=== PATIENT | male | born 1960 | race Caucasian/White ===

== ENCOUNTER 2017-10-24 02:48 | Observation (INO) | payer MEDICAID ==
[2017-10-24] VITALS (10 sets, daily range): BP systolic 109–148; BP diastolic 57–91; PULSE 56–73; RESP 16–20; TEMP 97.6–98.2; O2SAT 95–100
[~2017-10-24] VITALS: Ht 189.2 cm; Wt 80.0 kg
[~2017-10-24 02:48] MED LIST: ASPI81TA82 PO; EXCETAB; IBUP800T23 PO; PERC5TAB12 PO; TAB-TAB PO
[2017-10-24] MEDS ORDERED: ONDANSETRON HCL 4 MG/2 ML VIAL IVP ONE (05:00)
[2017-10-24] MEDS ORDERED: SODIUM CHLOR 0.9% 1000 ML INJ 1,000 ML IV SCH (05:00)
[2017-10-24] MEDS ORDERED: MORPHINE SULFATE 4 MG/ML INJ IV PUSH ONE (05:00)
--- NOTE | 2017-10-24 05:04 | PD ---
HPI Chief Complaint: Flank/Kidney Pain Time Seen by Provider: 04:57 Travel History International Travel<30 days: No Contact w/Intl Traveler<30days: No Traveled to known affect area: No History of Present Illness HPI 57-year-old male here for evaluation of left flank pain. The patient reports history of kidney stone last year and is followed by urologist Dr. Ortega. States that the pain is very similar. Pain started yesterday evening and is kept him from sleeping, has been constant, described as sharp/dull, intermittently worse at times, currently 5 out of 10, no modifying factors. He reports that he became nauseous and had a couple episodes of vomiting. Denies any history of abdominal surgeries. No hematuria or urinary symptoms. PFSH Past Medical History Anxiety: No Cancer: No Cardiovascular Problems: No Diabetes: No Diminished Hearing: No Endocrine: No Genitourinary: Yes (LEFT NEPHROSTOMY TUBE) Hepatitis: No Hiatal Hernia: No Hypertension: Yes Immune Disorder: No Kidney Stones: Yes Musculoskeletal: No Neurologic: No Psychiatric: No Respiratory: No Thyroid Disease: No Tetanus Vaccination: Unknown Influenza Vaccination: No Past Surgical History AICD: No Body Medical Devices: STENT L SIDE Cholecystectomy: Yes Genitourinary Surgery: Yes ( L SIDE STENT) Joint Replacement: No Pacemaker: No Tonsillectomy: Yes Other Surgery: Yes Social History Alcohol Use: Yes (OCCASIONAL) Tobacco Use: Yes (1 PPK) Substance Use: No Allergies-Medications (Allergen,Severity, Reaction): Coded Allergies: *MDRO Multi-Drug Resistant Organism (Verified Adverse Reaction, Unknown, 10/24/17) MRSA (wound) - 02/06/05 Reported Meds & Prescriptions Reported Meds & Active Scripts Active No Active Prescriptions or Reported Medications Review of Systems Except as stated in HPI: all other systems reviewed are Neg Physical Exam Narrative GENERAL: Well-developed, well-nourished, no apparent distress. SKIN: Focused skin assessment warm/dry. No rash. HEAD: Atraumatic. Normocephalic. EYES: Pupils equal and round. No scleral icterus. No injection or drainage. ENT: Mucous membranes pink and moist. NECK: Trachea midline. No JVD. CARDIOVASCULAR: Regular rate and rhythm. No murmur appreciated. RESPIRATORY: No accessory muscle use. Clear to auscultation. Breath sounds equal bilaterally. GASTROINTESTINAL: Abdomen soft, nondistended. Mild left mid and left lower quadrant tenderness without peritoneal signs. Rest of abdomen is soft and nontender. MUSCULOSKELETAL: No obvious deformities. No clubbing. No cyanosis. No edema. Mild left CVA tenderness. No right CVA tenderness. No midline vertebral step- off or tenderness. NEUROLOGICAL: Awake and alert. No obvious cranial nerve deficits. Motor grossly within normal limits. Normal speech. PSYCHIATRIC: Appropriate mood and affect; insight and judgment normal. Data Data Last Documented VS Vital Signs Date Time Temp Pulse Resp B/P (MAP) Pulse Ox O2 Delivery O2 Flow Rate FiO2 10/24/17 06:05 68 16 128/75 (92) 99 Room Air 10/24/17 02:51 97.6 Orders Orders Complete Blood Count With Diff (10/24/17 05:00) Comprehensive Metabolic Panel (10/24/17 05:00) Urinalysis - C+S If Indicated (10/24/17 05:00) Ct Abd/Pel W/O Iv Contrast (10/24/17 05:00) Iv Access Insert/Monitor (10/24/17 05:00) Ecg Monitoring (10/24/17 05:00) Oximetry (10/24/17 05:00) Morphine Inj (Morphine Inj) (10/24/17 05:00) Ondansetron Inj (Zofran Inj) (10/24/17 05:00) Sodium Chlor 0.9% 1000 Ml Inj (Ns 1000 M (10/24/17 05:00) Sodium Chloride 0.9% Flush (Ns Flush) (10/24/17 05:00) Urine Culture (10/24/17 06:00) Ceftriaxone Inj (Rocephin Inj) (10/24/17 06:30) Labs Laboratory Tests Test 10/24/17 05:16 10/24/17 06:00 10/24/17 06:50 White Blood Count 15.9 TH/MM3 Red Blood Count 4.95 MIL/MM3 Hemoglobin 15.3 GM/DL Hematocrit 45.1 % Mean Corpuscular Volume 91.2 FL Mean Corpuscular Hemoglobin 31.0 PG Mean Corpuscular Hemoglobin Concent 34.0 % Red Cell Distribution Width 14.2 % Platelet Count 231 TH/MM3 Mean Platelet Volume 8.2 FL Neutrophils (%) (Auto) 88.4 % Lymphocytes (%) (Auto) 4.3 % Monocytes (%) (Auto) 6.8 % Eosinophils (%) (Auto) 0.3 % Basophils (%) (Auto) 0.2 % Neutrophils # (Auto) 14.0 TH/MM3 Lymphocytes # (Auto) 0.7 TH/MM3 Monocytes # (Auto) 1.1 TH/MM3 Eosinophils # (Auto) 0.0 TH/MM3 Basophils # (Auto) 0.0 TH/MM3 CBC Comment DIFF FINAL Differential Comment Urine Color YELLOW Urine Turbidity CLOUDY Urine pH 6.5 Urine Specific [place] 1.019 Urine Protein 100 mg/dL Urine Glucose (UA) NEG mg/dL Urine Ketones NEG mg/dL Urine Occult Blood MOD Urine Nitrite NEG Urine Bilirubin NEG Urine Urobilinogen 2.0 MG/DL Urine Leukocyte Esterase LARGE Urine RBC /hpf Urine WBC /hpf Urine WBC Clumps MANY Microscopic Urinalysis Comment CULTURE INDICATED Blood Urea Nitrogen 16 MG/DL Creatinine 1.31 MG/DL Random Glucose 123 MG/DL Total Protein 7.8 GM/DL Albumin 3.0 GM/DL Calcium Level 8.2 MG/DL Alkaline Phosphatase 72 U/L Aspartate Amino Transf (AST/SGOT) 12 U/L Alanine Aminotransferase (ALT/SGPT) 22 U/L Total Bilirubin 0.5 MG/DL Sodium Level 141 MEQ/L Potassium Level 4.4 MEQ/L Chloride Level 107 MEQ/L Carbon Dioxide Level 29.9 MEQ/L Anion Gap 4 MEQ/L Estimat Glomerular Filtration Rate 56 ML/MIN MDM Medical Decision Making Medical Screen Exam Complete: Yes Emergency Medical Condition: Yes Differential Diagnosis Nephrolithiasis, ureterolithiasis, UTI, pyelonephritis, colitis, diverticulitis, Narrative Course Vital signs reviewed. CBC is remarkable for WBC 15.9 with 88.4% neutrophils. CMP is remarkable for creatinine 1.31, GFR 56, otherwise. UA shows cloudy urine, moderate occult blood, large leukocyte esterase, innumerable rbc's, innumerable wbc's, many wbc clumps. CT abdomen pelvis: CONCLUSION: 1. Moderate left hydronephrosis with surrounding inflammatory change. There is dilatation of the left ureter down to the site of a previously noted 12 mm calculus which is now smaller and changed in configuration. This may be status post lithotripsy. 2. 2 nonobstructing left renal calculus. Patient has had history of urosepsis in our system. He was given a dose of IV Rocephin. Currently his vital signs are within normal limits. Patient was given IV morphine with some improvement in pain. He complains of occasional waves of worsening pain. Case discussed with on-call urologist Dr. Weeks who agrees with admitting the patient to the medical service for urology consultation. Chemistry has been recontacted twice for hemolyzed specimen. Diagnosis Primary Impression: Ureterolithiasis Additional Impression: Pyelonephritis Admitting Information Admitting Physician Requests: Admit Scripts No Active Prescriptions or Reported Meds Pepe Best MD Oct 24, 2017 05:04
[2017-10-24 05:36] LABS: BASOPHIL % 0.2 % (0.0-2.0); EOSINOPHIL % 0.3 % (0.0-4.0); HEMATOCRIT 45.1 % (39.0-51.0); HEMO FLAGS DIFF FINAL; LYMPH % 4.3 % (9.0-44.0); LYMPHOCYTE # 0.7 TH/MM3 (1.0-4.8); MEAN CELL VOLUME 91.2 FL (80.0-100.0); MONO % 6.8 % (0.0-8.0); NEUT % 88.4 % (16.0-70.0); PLATELET COUNT 231 TH/MM3 (150-450); RED BLOOD COUNT 4.95 MIL/MM3 (4.50-5.90); RED CELL DISTRIBUTION WIDTH 14.2 % (11.6-17.2); WHITE BLOOD COUNT 15.9 TH/MM3 (4.0-11.0)
--- NOTE | 2017-10-24 06:03 | RADRPT ---
EXAM DATE/TIME: 10/24/2017 05:43 [facility] COMPARISON: CT ABDOMEN & PELVIS W/O CONTRAST, April 30, 2016, 6:27. INDICATIONS : Left flank pain. ORAL CONTRAST: No oral contrast ingested. RADIATION DOSE: 9.20 CTDIvol (mGy) MEDICAL HISTORY : Renal calculi. SURGICAL HISTORY : nephrostomy ENCOUNTER: Initial ACUITY: 1 day PAIN SCALE: 5/10 LOCATION: Left flank TECHNIQUE: Volumetric scanning of the abdomen and pelvis was performed. Using automated exposure control and ad justment of the mA and/or kV according to patient size, radiation dose was kept as low as reasonably achievable to obtain optimal diagnostic quality images. DICOM format image data is available electro nically for review and comparison. FINDINGS: LOWER LUNGS: The visualized lower lungs are clear. LIVER: Homogeneous density without lesion. There is no dilation of the biliary tree. No calcified gallston es. SPLEEN: Normal size without lesion. PANCREAS: Within normal limits. KIDNEYS: The right kidney remains normal in size shape and attenuation value with no renal calculi. The left k idney is more prominent and contains 2 nonobstructing. A calculus in the lower pole is new and measur es approximately 5 mm. There is moderate left hydronephrosis with surrounding inflammatory change. Th ere is dilatation of the left ureter down to the proximal left pelvis. On the prior study, there was a 1.2 cm rounded stone. There is now a more linear collection of calcification best seen on axial peg ge #76. This measures approximately 10 x 3 mm in size. The ureter below this point is within normal l imits. ADRENAL GLANDS: Within normal limits. VASCULAR: There is no aortic aneurysm. BOWEL/MESENTERY: The stomach, small bowel, and colon demonstrate no acute abnormality. There is no free intraperitone al air or fluid. ABDOMINAL WALL: Within normal limits. RETROPERITONEUM: There is no lymphadenopathy. BLADDER: No wall thickening or mass. REPRODUCTIVE: Within normal limits. INGUINAL: There is no lymphadenopathy or hernia. MUSCULOSKELETAL: Within normal limits for patient age. CONCLUSION: 1. Moderate left hydronephrosis with surrounding inflammatory change. There is dilatation of the left ureter down to the site of a previously noted 12 mm calculus which is now smaller and changed in con figuration. This may be status post lithotripsy. 2. 2 nonobstructing left renal calculus. Aiblio Parker MD on October 24, 2017 at 5:55 Board Certified Radiologist. This report was verified electronically.
[2017-10-24 06:26] LABS: BLOOD, URINE MOD (NEG); COMMENT (UR) CULTURE INDICATED; CULTURE IF INDICATED CULTURE INDICATED; GLUCOSE,URINE NEG (NEG); KETONE, URINE NEG (NEG); NITRITE,URINE NEG (NEG); PH, URINE 6.5 (5.0-8.5); URINE COLOR YELLOW (YELLW/STRAW)
[2017-10-24] MEDS ORDERED: cefTRIAXone INJ 1,000 MG in SODIUM CHLORIDE 0.9% INJ 100 ML IV ONE (06:30)
[2017-10-24 06:48] LABS: ALKALINE PHOSPHATASE 72 U/L (45-117); TOTAL BILIRUBIN ADULT 0.5 MG/DL (0.2-1.0)
[2017-10-24 07:26] LABS: ALT (GPT) 22 U/L (12-78); ANION GAP 4 MEQ/L (5-15); AST (GOT) 12 U/L (15-37); BICARBONATE 29.9 MEQ/L (21.0-32.0); BLOOD UREA NITROGEN 16 MG/DL (7-18); CHLORIDE 107 MEQ/L (98-107); GLOMERULAR FILTRATION RATE 56 ML/MIN (>89); POTASSIUM 4.4 MEQ/L (3.5-5.1); SODIUM (NA) 141 MEQ/L (136-145)
[2017-10-24] MEDS ORDERED: ONDANSETRON HCL 4 MG/2 ML VIAL IV PUSH PRN (08:15)
[2017-10-24] MEDS: SODIUM CHLOR 0.9% 1000 ML INJ 1,000 ML IV SCH ×2 (09:34→18:15)
[2017-10-24] MEDS ORDERED: ONDANSETRON HCL 4 MG/2 ML VIAL IV PUSH ONE (12:00)
[2017-10-24] MEDS ORDERED: LIDOCAINE HCL 1% PF 5 ML SYRINGE OTHER ONE (12:00)
[2017-10-24] MEDS ORDERED: PROPOFOL 200 MG/20 ML AMP IV ONE (12:00)
[2017-10-24] MEDS ORDERED: ePHEDrine/NS 25 MG/5 ML SYR IV ONE (12:00)
[2017-10-24] MEDS ORDERED: LACTATED RINGER'S 1000 ML INJ 1,000 ML IV ONE (12:00)
--- NOTE | 2017-10-24 12:51 | HHI.HP ---
[facility] Zamzam Rodriguez MD Admission Diagnosis obstructive uropathy, urinary tract infection Diagnoses: (1) left sided hydronephrosis Diagnosis: Principal Chief Complaint: abdominal pain Travel History International Travel<30 Days: No Contact w/Intl Traveler <30 Da: No Traveled to Known Affected Are: No History of Present Illness patient is a 57 y/o male with history of nephrolithiasis- s/p lithotripsy and stent placement who presented to ER with abdominal pain. he says that the pain started last night. pain was severe in intensity. pain was localized to LLQ with no radiation. pain was associated with nausea and vomiting. he denies any fever, dysuria or gross hematuria. pain was better at the time of my evaluation. Review of Systems Constitutional: DENIES: Fever, Weight loss, Chills, Night Sweats Eyes: DENIES: Blurred vision, Diplopia, Vision loss, Double Vision Ears, nose, mouth, throat: DENIES: Tinnitus, Vertigo, Throat pain, Epistaxis Respiratory: DENIES: Apneas, Cough, Snoring, Wheezing, Hemoptysis, Sputum production, Shortness of breath Cardiovascular: DENIES: Chest pain, Palpitations, Syncope, Dyspnea on Exertion , PND, Lower Extremity Edema, Orthopnea, Claudication Gastrointestinal: COMPLAINS OF: Abdominal pain, Nausea, Vomiting, DENIES: Black stools, Bloody stools, Constipation, Diarrhea, Difficulty Swallowing, Anorexia Genitourinary: DENIES: Urinary frequency, Urgency, Hematuria, Dysuria Musculoskeletal: DENIES: Joint pain, Muscle aches, Stiffness, Joint Swelling Integumentary: DENIES: Rash Neurologic: DENIES: Abnormal gait, Headache, Localized weakness, Paresthesias, Seizures, Speech Problems, Tremor, Poor Balance Psychiatric: DENIES: Anxiety, Confusion, Mood changes, Depression, Hallucinations, Agitation, Suicidal Ideation, Homicidal Ideation, Delusions Past Family Social History Past Medical History nephrolithiasis Past Surgical History lithotripsy/ stent placement. Reported Medications none reported. Allergies: Coded Allergies: *MDRO Multi-Drug Resistant Organism (Verified Adverse Reaction, Unknown, 10/24/17) MRSA (wound) - 02/06/05 Active Ordered Medications Current Medications Morphine Sulfate (Morphine Inj) 4 mg ONCE ONCE IV PUSH Last administered on 05:12; Start 10/24/17 at 05:00; Stop 10/24/17 at 05:01; Status DC Ondansetron HCl (Zofran Inj) 4 mg ONCE ONCE IVP Last administered on 05:12; Start 10/24/17 at 05:00; Stop 10/24/17 at 05:01; Status DC Sodium Chloride 1,000 ml @ 1,000 mls/hr Q1H IV Last administered on 10/24/17 05:11; Start 10/24/17 at 05:00; Stop 10/24/17 at 05:59; Status DC Sodium Chloride (NS Flush) 2 ml UNSCH PRN IV FLUSH FLUSH AFTER USING IV ACCESS ; Start 10/24/17 at 05:00 Ceftriaxone Sodium 1000 mg/ Sodium Chloride 100 ml @ 200 mls/hr ONCE ONCE IV Last administered on 10/24/17 07:00; Start 10/24/17 at 06:30; Stop 10/24/17 at 06:59; Status DC Ondansetron HCl (Zofran Inj) 4 mg Q8HR PRN IV PUSH NAUSEA; Start 10/24/17 at 08 :15 Morphine Sulfate (Morphine Inj) 2 mg Q4HR PRN IV PUSH PAIN 1-10; Start at 08:15 Sodium Chloride 1,000 ml @ 100 mls/hr Q10H IV Last administered on 10/24/17 09:34; Start 10/24/17 at 08:15 Ceftriaxone Sodium 1000 mg/ Sodium Chloride 100 ml @ 200 mls/hr Q24H IV ; Start 10/25/17 at 07:00 Family History not relevant to this consult. Social History smokes a pack a day- drinks occasionally. Physical Exam Vital Signs Vital Signs Date Time Temp Pulse Resp B/P (MAP) Pulse Ox O2 Delivery O2 Flow Rate FiO2 10/24/17 12:00 98.0 68 18 114/57 (76) 99 10/24/17 10:13 98.0 64 18 113/64 (80) 99 10/24/17 09:44 10/24/17 09:33 66 18 119/70 (86) 97 Room Air 10/24/17 06:05 68 16 128/75 (92) 99 Room Air 10/24/17 05:09 100 Room Air 10/24/17 05:04 67 16 148/91 (110) 99 Room Air 10/24/17 02:51 97.6 56 20 143/73 (96) 99 Physical Exam GENERAL: This is a well-nourished, well-developed patient, in no apparent distress. SKIN: No rashes, ecchymoses or lesions. Cool and dry. HEAD: Atraumatic. Normocephalic. No temporal or scalp tenderness. EYES: Pupils equal round and reactive. Extraocular motions intact. No scleral icterus. No injection or drainage. ENT: Nose without bleeding, purulent drainage or septal hematoma. Throat without erythema, tonsillar hypertrophy or exudate. Uvula midline. Airway patent. NECK: Trachea midline. No JVD or lymphadenopathy. Supple, nontender, no meningeal signs. CARDIOVASCULAR: Regular rate and rhythm without murmurs, gallops, or rubs. RESPIRATORY: Clear to auscultation. Breath sounds equal bilaterally. No wheezes , rales, or rhonchi. GASTROINTESTINAL: Abdomen soft, non-tender, nondistended. No hepato-splenomegaly , or palpable masses. No guarding. MUSCULOSKELETAL: Extremities without clubbing, cyanosis, or edema. No joint tenderness, effusion, or edema noted. No calf tenderness. Negative Homans sign bilaterally. NEUROLOGICAL: Awake and alert. Cranial nerves II through XII intact. Motor and sensory grossly within normal limits. Five out of 5 muscle strength in all muscle groups. Normal speech. Laboratory Laboratory Tests Test 10/24/17 05:16 10/24/17 06:00 10/24/17 06:50 White Blood Count 15.9 Red Blood Count 4.95 Hemoglobin 15.3 Hematocrit 45.1 Mean Corpuscular Volume 91.2 Mean Corpuscular Hemoglobin 31.0 Mean Corpuscular Hemoglobin Concent 34.0 Red Cell Distribution Width 14.2 Platelet Count 231 Mean Platelet Volume 8.2 Neutrophils (%) (Auto) 88.4 Lymphocytes (%) (Auto) 4.3 Monocytes (%) (Auto) 6.8 Eosinophils (%) (Auto) 0.3 Basophils (%) (Auto) 0.2 Neutrophils # (Auto) 14.0 Lymphocytes # (Auto) 0.7 Monocytes # (Auto) 1.1 Eosinophils # (Auto) 0.0 Basophils # (Auto) 0.0 CBC Comment DIFF FINAL Differential Comment Urine Color YELLOW Urine Turbidity CLOUDY Urine pH 6.5 Urine Specific [place] 1.019 Urine Protein 100 Urine Glucose (UA) NEG Urine Ketones NEG Urine Occult Blood MOD Urine Nitrite NEG Urine Bilirubin NEG Urine Urobilinogen 2.0 Urine Leukocyte Esterase LARGE Urine RBC Urine WBC Urine WBC Clumps MANY Microscopic Urinalysis Comment CULTURE INDICATED Blood Urea Nitrogen 16 Creatinine 1.31 Random Glucose 123 Total Protein 7.8 Albumin 3.0 Calcium Level 8.2 Alkaline Phosphatase 72 Aspartate Amino Transf (AST/SGOT) 12 Alanine Aminotransferase (ALT/SGPT) 22 Total Bilirubin 0.5 Sodium Level 141 Potassium Level 4.4 Chloride Level 107 Carbon Dioxide Level 29.9 Anion Gap 4 Estimat Glomerular Filtration Rate 56 Date/Time Source Procedure Growth Status 10/24/17 06:00 Urine Clean Catch Urine Culture Pending Received Result Diagram: 10/24/17 0516 10/24/17 0650 Imaging Last Impressions Abdomen/Pelvis CT 10/24/17 0500 Signed Impressions: Service Date/Time: Tuesday, October 24, 2017 05:43 - CONCLUSION: 1. Moderate left hydronephrosis with surrounding inflammatory change. There is dilatation of the left ureter down to the site of a previously noted 12 mm calculus which is now smaller and changed in configuration. This may be status post lithotripsy. 2. 2 nonobstructing left renal calculus. MD Yulia Mittal VTE Risk Assessment Caprini VTE Risk Assessment: No/Low Risk (score <= 1) Caprini Risk Assessment Model Point Value = 1 Point Value = 2 Point Value = 3 Point Value = 5 Age 41-60 Minor surgery BMI > 25 kg/m2 Swollen legs Varicose veins or History of unexplained or recurrent spontaneous Oral contraceptives or hormone replacement Sepsis (< 1 month) Serious lung disease, including pneumonia (< 1 month) Abnormal pulmonary function Acute myocardial infarction Congestive heart failure (< 1 month) History of inflammatory bowel disease Medical patient at bed rest Age 61-74 Arthroscopic surgery Major open surgery (> 45 min) Laparoscopic surgery (> 45 min) Malignancy Confined to bed (> 72 hours) Immobilizing plaster cast Central venous access Age >= 75 History of VTE Family history of VTE Factor V Leiden Prothrombin [id number] Lupus anticoagulant Anticardiolipin antibodies Elevated serum homocysteine Heparin-induced thrombocytopenia Other congenital or acquired thrombophilia Stroke (< 1 month) Elective arthroplasty Hip, pelvis, or leg fracture Acute spinal cord injury (< 1 month) Prophylaxis Regimen Total Risk Factor Score Risk Level Prophylaxis Regimen 0-1 Low Early ambulation 2 Moderate Order ONE of the following: *Sequential Compression Device (SCD) *Heparin 5000 units SQ BID 3-4 Higher Order ONE of the following medications: *Heparin 5000 units SQ TID *Enoxaparin/Lovenox 40 mg SQ daily (WT < 150 kg, CrCl > 30 mL/min) *Enoxaparin/Lovenox 30 mg SQ daily (WT < 150 kg, CrCl > 10-29 mL/min) *Enoxaparin/Lovenox 30 mg SQ BID (WT < 150 kg, CrCl > 30 mL/min) AND/OR *Sequential Compression Device (SCD) 5 or more Highest Order ONE of the following medications: *Heparin 5000 units SQ TID (Preferred with Epidurals) *Enoxaparin/Lovenox 40 mg SQ daily (WT < 150 kg, CrCl > 30 mL/min) *Enoxaparin/Lovenox 30 mg SQ daily (WT < 150 kg, CrCl > 10-29 mL/min) *Enoxaparin/Lovenox 30 mg SQ BID (WT < 150 kg, CrCl > 30 mL/min) AND *Sequential Compression Device (SCD) Assessment and Plan Assessment and Plan A/P - nephrolithiasis/ left sided hydronephrosis continue with supportive care with IV fluid, antiemetics and pain control as needed- will consult Urology. -complicated UTI continue with IV Rocephin- follow the cultures. will monitor CBC and temp. -chronic renal insufficiency; continue with IV fluid and monitor the renal function. -DVT prophylaxis; SCD's- pending urology evaluation. Discussed Condition With ER physician and the patient. Jazmin Gamble MD Oct 24, 2017 12:51
--- NOTE | 2017-10-24 13:00 | PD.CONS ---
HPI Service Urology Consult Requested By Reason for Consult Left ureteral calculus Primary Care Physician Zamzam Rodriguez MD Diagnosis: (1) left sided hydronephrosis History of Present Illness Pleasant 57 year-old gentleman with history nephrolithiasis in the past who presented to the emergency room with acute onset left flank pain. Workup included a CT scan stone protocol that demonstrated a 14 mm obstructing left proximal to mid ureteral stone with moderate hydronephrosis. Urinalysis was consistent with UTI and patient started on antibiotics. Urology now consulted management of the obstructing left ureteral calculus. Patient does have a history of a long-standing obstructing calculus in same position that was treated back in 2016. At that time attempt was made to pass a renal stent without success and the patient ultimately had a percutaneous nephrostomy tube placed. Subsequent shockwave lithotripsy was not successful and the patient ended up with ureteroscopy with laser lithotripsy. During the ureteroscopy the patient was noted to have erosion of the ureter at the stone impaction site and a stent was placed and left indwelling for several weeks. Patient had been doing well up until just recently. Patient denies dysuria or gross hematuria. Denies fevers or shaking chills. 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 Active Ordered Medications Refer to EMR Family History Reviewed and noncontributory Social History Smoker one pack per day Occasional alcohol use Denies history intravenous drug abuse Physical Exam Vital Signs Date Time Temp Pulse Resp B/P (MAP) Pulse Ox O2 Delivery O2 Flow Rate FiO2 10/24/17 12:00 98.0 68 18 114/57 (76) 99 10/24/17 10:13 98.0 64 18 113/64 (80) 99 10/24/17 09:44 10/24/17 09:33 66 18 119/70 (86) 97 Room Air 10/24/17 06:05 68 16 128/75 (92) 99 Room Air 10/24/17 05:09 100 Room Air 10/24/17 05:04 67 16 148/91 (110) 99 Room Air 10/24/17 02:51 97.6 56 20 143/73 (96) 99 Physical Exam GENERAL: This is a well-nourished, well-developed patient, in no apparent distress. SKIN: No rashes, ecchymoses or lesions. Cool and dry. HEAD: Atraumatic. Normocephalic. No temporal or scalp tenderness. EYES: Pupils equal round and reactive. Extraocular motions intact. No scleral icterus. No injection or drainage. ENT: Nose without bleeding, purulent drainage or septal hematoma. Throat without erythema, tonsillar hypertrophy or exudate. Uvula midline. Airway patent. NECK: Trachea midline. No JVD or lymphadenopathy. Supple, nontender, no meningeal signs. CARDIOVASCULAR: Regular rate and rhythm without murmurs, gallops, or rubs. RESPIRATORY: Clear to auscultation. Breath sounds equal bilaterally. No wheezes , rales, or rhonchi. GASTROINTESTINAL: Abdomen soft, non-tender, nondistended. No hepato-splenomegaly , or palpable masses. No guarding. GENITOURINARY: MUSCULOSKELETAL: Extremities without clubbing, cyanosis, or edema. No joint tenderness, effusion, or edema noted. No calf tenderness. Negative Homans sign bilaterally. NEUROLOGICAL: Awake and alert. Cranial nerves II through XII intact. Motor and sensory grossly within normal limits. Five out of 5 muscle strength in all muscle groups. Normal speech. Lab results reviewed: Yes Laboratory Tests Test 10/24/17 05:16 10/24/17 06:00 10/24/17 06:50 White Blood Count 15.9 Red Blood Count 4.95 Hemoglobin 15.3 Hematocrit 45.1 Mean Corpuscular Volume 91.2 Mean Corpuscular Hemoglobin 31.0 Mean Corpuscular Hemoglobin Concent 34.0 Red Cell Distribution Width 14.2 Platelet Count 231 Mean Platelet Volume 8.2 Neutrophils (%) (Auto) 88.4 Lymphocytes (%) (Auto) 4.3 Monocytes (%) (Auto) 6.8 Eosinophils (%) (Auto) 0.3 Basophils (%) (Auto) 0.2 Neutrophils # (Auto) 14.0 Lymphocytes # (Auto) 0.7 Monocytes # (Auto) 1.1 Eosinophils # (Auto) 0.0 Basophils # (Auto) 0.0 CBC Comment DIFF FINAL Differential Comment Urine Color YELLOW Urine Turbidity CLOUDY Urine pH 6.5 Urine Specific Hibbs 1.019 Urine Protein 100 Urine Glucose (UA) NEG Urine Ketones NEG Urine Occult Blood MOD Urine Nitrite NEG Urine Bilirubin NEG Urine Urobilinogen 2.0 Urine Leukocyte Esterase LARGE Urine RBC Urine WBC Urine WBC Clumps MANY Microscopic Urinalysis Comment CULTURE INDICATED Blood Urea Nitrogen 16 Creatinine 1.31 Random Glucose 123 Total Protein 7.8 Albumin 3.0 Calcium Level 8.2 Alkaline Phosphatase 72 Aspartate Amino Transf (AST/SGOT) 12 Alanine Aminotransferase (ALT/SGPT) 22 Total Bilirubin 0.5 Sodium Level 141 Potassium Level 4.4 Chloride Level 107 Carbon Dioxide Level 29.9 Anion Gap 4 Estimat Glomerular Filtration Rate 56 Date/Time Source Procedure Growth Status 10/24/17 06:00 Urine Clean Catch Urine Culture Pending Received Result Diagram: 10/24/17 0516 10/24/17 0650 Personally reviewed images: Yes Imaging Last Impressions Abdomen/Pelvis CT 10/24/17 0500 Signed Impressions: Service Date/Time: Tuesday, October 24, 2017 05:43 - CONCLUSION: 1. Moderate left hydronephrosis with surrounding inflammatory change. There is dilatation of the left ureter down to the site of a previously noted 12 mm calculus which is now smaller and changed in configuration. This may be status post lithotripsy. 2. 2 nonobstructing left renal calculus. Abilio Parker MD Assessment and Plan Assessment and Plan Urologic impression: #1 obstructing 12 mm left proximal to mid ureteral calculus #2 urinary tract infection related to obstructive uropathy Plan: #1 keep patient nothing by mouth #2 patient scheduled for cystoscopy, left retrograde pyelogram and left ureteral stent placement sometime this afternoon #3 risks and benefits discussed with patient including the possible need for a left percutaneous nephrostomy tube if I am not successful in passing a retrograde ureteral stent. Roger Ortega MD Oct 24, 2017 13:00
[2017-10-24] MEDS ORDERED: IOHEXOL 350 MG/ML 50 ML BTL (for RAD DIAG) OTHER ONE (15:57)
--- NOTE | 2017-10-24 16:13 | PD.OP ---
Operative Report Date of Surgery: Oct 24, 2017 Preoperative Diagnosis: (1) Ureteral calculus, left Postoperative Diagnosis: (1) Ureteral calculus, left Procedure: Cystoscopy, left retrograde pyelogram and left ureteral stent placement Anesthesia: General Surgeon: Roger Ortega Mushroom Spawn Maker(s): None Operation and Findings: Indication for procedure: Case of a pleasant 57 year-old gentleman with a 14 mm obstructing left proximal to mid ureteral stone who presents now for cystoscopy , left retrograde pyelogram and left ureteral stent placement. Operative procedure in detail: Patient was brought to the operating room suite and placed supine on the or table. He was then placed under general anesthesia. He was then repositioned in the dorsal lithotomy position and prepped and draped in normal sterile fashion. After appropriate timeout was undertaken, I proceeded with cystoscopic evaluation utilizing the rigid cystoscope with a 20 [place] sheath and 30 lens. The urethra was patent without stricture formation at the prostatic urethra was nonobstructing. Further passive cystoscope within the urinary bladder revealed both right and left ureteral orifices to be in correct anatomic position. There was clear reflux of urine noted from the right and no reflux noted on the left. A 6 [place] open-ended ureteral catheter was next utilized and a left retrograde pyelogram study performed that demonstrated the obstructing upper left ureteral calculus. I then passed a sensor 0.035 wire through the open-ended catheter and up into the left renal pelvis. The open-ended catheter was then exchanged for a 6 [place] 26 cm [place] stent and the stent was passed under both cystoscopic and fluoroscopic guidance without difficulty. Once the stent was in proper position, the trailing string was removed. A 16 [place] 10 cc [place] catheter was then placed and connected to gravity drainage. The patient tolerated the procedures without complications and was transferred to the PACU in satisfactory condition. Roger Ortega MD Oct 24, 2017 16:13
[2017-10-24] MEDS ORDERED: DO NOT ADM ANY ANTICOAGULANT DRUGS PRN (16:20)
[2017-10-24] MEDS ORDERED: MORPHINE SULFATE 8 MG/ML INJ ONE (16:31)
--- NOTE | 2017-10-24 21:51 | EKG ---
Date Performed: 10/24/2017 Time Performed: 14:42:50 PTAGE: 57 years EKG: SINUS BRADYCARDIA MODERATE INTRAVENTRICULAR CONDUCTION DELAY BORDERLINE ECG PREVIOUS TRACING : 04/30/2016 07.27 Compared to prior tracing no significant change DOCTOR: Chavo Estes Interpretating Date/Time 10/24/2017 21:49:44
[2017-10-25 03:13] VITALS: BP 117/67; PULSE 64; RESP 16; TEMP 98.1; O2SAT 97
--- NOTE | 2017-10-25 06:26 | RADRPT ---
EXAM DATE/TIME: 10/25/2017 06:00 [facility] COMPARISON: ABDOMEN KUB ONLY, May 12, 2016, 20:46. INDICATIONS : Calculi. MEDICAL HISTORY : Renal calculi. SURGICAL HISTORY : Nephrectomy, left. ENCOUNTER: Subsequent ACUITY: 2 days PAIN SCORE: 0/10 LOCATION: Bilateral abdomen FINDINGS: 2 AP supine views of the abdomen and pelvis were obtained and demonstrate interval removal of the per cutaneous nephrostomy tube and placement of a left double pigtail ureteral stent catheter. There are multiple small faint calcifications projected over the region of the lateral kidney. These measure up to approximately 3-4 mm in size. No definite ureteral calculi are identified. There are no right marija al calculi. The bowel gas pattern remains within normal limits. Bony structures are intact. CONCLUSION: 1. Interval removal of the percutaneous nephrostomy tube and placement of a left double pigtail urete ral stent catheter. 2. Multiple small left renal calculi. No definite ureteral calculi. Abilio Parker MD on October 25, 2017 at 6:23 Board Certified Radiologist. This report was verified electronically.
[2017-10-25] MEDS: cefTRIAXone INJ 1,000 MG in SODIUM CHLORIDE 0.9% INJ 100 ML IV SCH (07:14)
[2017-10-25 07:28] LABS: AUTOMATED NEUTROPHIL # 6.7 TH/MM3 (1.8-7.7); BASOPHIL % 0.5 % (0.0-2.0); EOSINOPHIL # 0.2 TH/MM3 (0-0.4); EOSINOPHIL % 1.8 % (0.0-4.0); HEMATOCRIT 37.9 % (39.0-51.0); HEMO FLAGS DIFF FINAL; LYMPH % 17.4 % (9.0-44.0); LYMPHOCYTE # 1.7 TH/MM3 (1.0-4.8); MEAN CELL VOLUME 91.8 FL (80.0-100.0); MEAN CORPUSCULAR HEMOGLOBIN 30.7 PG (27.0-34.0); MEAN CORPUSCULAR HGB CONC 33.5 % (32.0-36.0); MONO % 9.9 % (0.0-8.0); NEUT % 70.4 % (16.0-70.0); PLATELET COUNT 208 TH/MM3 (150-450); RED BLOOD COUNT 4.13 MIL/MM3 (4.50-5.90); RED CELL DISTRIBUTION WIDTH 13.9 % (11.6-17.2); WHITE BLOOD COUNT 9.5 TH/MM3 (4.0-11.0)
[2017-10-25 07:51] LABS: BICARBONATE 26.5 MEQ/L (21.0-32.0); POTASSIUM 3.9 MEQ/L (3.5-5.1)
[2017-10-25 07:55] VITALS: BP 116/63; PULSE 60; RESP 18; TEMP 98; O2SAT 98
[2017-10-25] MEDS ORDERED: INFLUENZA VIRUS VACCINE (QUADRIVALENT) 0.5 ML SYR IM ONE (10:00)
[2017-10-25 12:05] VITALS: BP 140/75; PULSE 73; RESP 18; TEMP 98.1; O2SAT 96
[2017-10-25] MEDS: MORPHINE SULFATE 4 MG/ML INJ IV PUSH PRN ×2 (12:15→19:41)
[2017-10-25 15:30] VITALS: BP 137/81; PULSE 66; RESP 18; TEMP 98.1; O2SAT 95
--- NOTE | 2017-10-25 16:10 | HHI.PR ---
Subjective Remarks The patient was feeling well. He has been ambulating. He is tolerating a diet. He has not been having any blood in the urine. He has been having bowel movements. Objective Vitals Vital Signs Date Time Temp Pulse Resp B/P (MAP) Pulse Ox O2 Delivery O2 Flow Rate FiO2 10/25/17 12:05 98.1 73 18 140/75 (96) 96 10/25/17 07:55 98.0 60 18 116/63 (80) 98 10/25/17 03:13 98.1 64 16 117/67 (84) 97 10/24/17 23:58 98.2 69 18 109/67 (81) 96 10/24/17 21:01 97.9 73 18 112/60 (77) 95 10/24/17 17:28 97.7 65 20 115/82 (93) 98 10/24/17 17:00 98.0 61 16 109/64 (79) 95 Nasal Cannula 2 10/24/17 16:45 59 16 110/62 (78) 92 Nasal Cannula 2 10/24/17 16:30 69 16 110/62 (78) 95 Nasal Cannula 2 10/24/17 16:20 98.0 69 16 110/59 (76) 94 Nasal Cannula 2 I/O 10/24/17 10/24/17 10/24/17 10/25/17 10/25/17 10/25/17 07:00 15:00 23:00 07:00 15:00 23:00 Intake Total 1100 ml 1000 ml 1100 ml Output Total 0 ml Balance 1100 ml 1000 ml 1100 ml Intake Oral 0 ml 300 ml IV Total 1100 ml 0 ml 800 ml Other 1000 ml Output Urine Total 0 ml Estimated Blood Loss 0 ml Result Diagram: 10/25/17 0700 10/25/17 07 Imaging Last Impressions Abdomen X-Ray 10/25/17 06 Signed Impressions: Service Date/Time: Wednesday, October 25, 2017 06:00 - CONCLUSION: 1. Interval removal of the percutaneous nephrostomy tube and placement of a left double pigtail ureteral stent catheter. 2. Multiple small left renal calculi. No definite ureteral calculi. Abilio Parker MD Abdomen/Pelvis CT 10/24/17 0500 Signed Impressions: Service Date/Time: Tuesday, October 24, 2017 05:43 - CONCLUSION: 1. Moderate left hydronephrosis with surrounding inflammatory change. There is dilatation of the left ureter down to the site of a previously noted 12 mm calculus which is now smaller and changed in configuration. This may be status post lithotripsy. 2. 2 nonobstructing left renal calculus. Abilio Parker MD Objective Remarks GENERAL: This is a well-nourished, well-developed patient, in no apparent distress. SKIN: No rashes, ecchymoses or lesions. Cool and dry. HEAD: Atraumatic. Normocephalic. No temporal or scalp tenderness. EYES: Pupils equal round and reactive. Extraocular motions intact. No scleral icterus. No injection or drainage. ENT: Nose without bleeding, purulent drainage or septal hematoma. Throat without erythema, tonsillar hypertrophy or exudate. Uvula midline. Airway patent. NECK: Trachea midline. No JVD or lymphadenopathy. Supple, nontender, no meningeal signs. CARDIOVASCULAR: Regular rate and rhythm without murmurs, gallops, or rubs. RESPIRATORY: Clear to auscultation. Breath sounds equal bilaterally. No wheezes , rales, or rhonchi. GASTROINTESTINAL: Abdomen soft, non-tender, nondistended. No hepato-splenomegaly , or palpable masses. No guarding. MUSCULOSKELETAL: Extremities without clubbing, cyanosis, or edema. No joint tenderness, effusion, or edema noted. NEUROLOGICAL: Awake and alert. Cranial nerves II through XII intact. Motor and sensory grossly within normal limits. Five out of 5 muscle strength in all muscle groups. Normal speech. Procedures Cystoscopy, left retrograde pyelogram and left ureteral stent placement Medications and IVs Current Medications Medications (Trade) Dose Ordered Sig/Roque Route Start Time Stop Time Status Last Admin (NS Flush) 2 ml UNSCH PRN IV FLUSH 10/24/17 05:00 (Zofran Inj) 4 mg Q8HR PRN IV PUSH 10/24/17 08:15 (Morphine Inj) 2 mg Q4HR PRN IV PUSH 10/24/17 08:15 10/25/17 12:15 Sodium Chloride 1,000 ml @ 100 mls/hr Q10H IV 10/24/17 08:15 10/24/17 09:34 Ceftriaxone Sodium 1000 mg/ Sodium Chloride 100 ml @ 200 mls/hr Q24H IV 10/25/17 07:00 12/6/17 07:14 Miscellaneous Information ALL NURSING DEPARTME... UNSCH PRN .XX 10/24/17 16:20 10/25/17 16:19 A/P Problem List: (1) left sided hydronephrosis Assessment and Plan Nephrolithiasis/ left sided hydronephrosis S/p urology evaluation and cystoscopy, left retrograde pyelogram and left ureteral stent placement. - continue with supportive care. - outpt follow-up for lithotripsy. Complicated UTI - continue with IV Rocephin - follow the cultures. Chronic renal insufficiency Stable. - monitor the renal function. DVT prophylaxis; SCD's Discharge Planning Anticipate d/c in Abilio Moody DO Oct 25, 2017 16:10
[2017-10-25] MEDS: SODIUM CHLORIDE 0.9% FLUSH 10 ML FLUSH IV FLUSH PRN (19:41)
[2017-10-25 20:05] VITALS: BP 131/76; PULSE 72; RESP 18; TEMP 99.2; O2SAT 94
[2017-10-26 00:29] VITALS: BP 132/77; PULSE 62; RESP 18; TEMP 98.5; O2SAT 96
[2017-10-26 04:53] VITALS: BP 127/69; PULSE 68; RESP 18; TEMP 98; O2SAT 97
[2017-10-26] MEDS: cefTRIAXone INJ 1,000 MG in SODIUM CHLORIDE 0.9% INJ 100 ML IV SCH (06:51)
[2017-10-26] MEDS: SODIUM CHLORIDE 0.9% FLUSH 10 ML FLUSH IV FLUSH PRN (06:51)
[2017-10-26 07:49] VITALS: BP 143/75; PULSE 61; RESP 20; TEMP 98.1; O2SAT 97
[2017-10-26] MEDS ORDERED: OXYC1CAP PO (09:27)
[2017-10-26] MEDS ORDERED: CEFU1TAB18 PO (09:27)
--- NOTE | 2017-10-26 09:27 | HHI.DCPOC ---
Discharge Care Plan Diagnosis: (1) Acute renal failure (2) Nephrolithiasis (3) Obstructive uropathy Goals to Promote Your Health * To prevent worsening of your condition and complications * To maintain your health at the optimal level Directions to Meet Your Goals Take your medications as prescribed Follow your dietary instruction Follow activity as directed Keep your appointments as scheduled Take your immunizations and boosters as scheduled If your symptoms worsen call your PCP, if no PCP go to Urgent Care Center or Emergency Room Smoking is Dangerous to Your Health. Avoid second hand smoke Call the 24-hour hour crisis hotline for domestic abuse at Abilio Lau DO Oct 26, 2017 09:27
--- NOTE | 2017-10-26 09:38 | HHI.DS ---
Discharge Summary Admission Date Oct 24, 2017 at 08:17 Discharge Date: Oct 26, 2017 Admitting Diagnosis obstructive uropathy, urinary tract infection (1) left sided hydronephrosis Diagnosis: Principal (2) Obstructive uropathy ICD Code: N13.9 - Obstructive and reflux uropathy, unspecified Diagnosis: Principal Status: Acute (3) Acute renal failure ICD Code: N17.9 - Acute kidney failure, unspecified Diagnosis: Principal Status: Acute Procedures Cystoscopy, left retrograde pyelogram and left ureteral stent placement Brief History - From Admission patient is a 57 y/o male with history of nephrolithiasis- s/p lithotripsy and stent placement who presented to ER with abdominal pain. he says that the pain started last night. pain was severe in intensity. pain was localized to LLQ with no radiation. pain was associated with nausea and vomiting. he denies any fever, dysuria or gross hematuria. pain was better at the time of my evaluation. CBC/BMP: 10/25/17 0700 10/25/17 0700 Significant Findings Laboratory Tests Test 10/24/17 05:16 10/24/17 06:00 10/24/17 06:50 10/25/17 07:00 White Blood Count 15.9 TH/MM3 (4.0-11.0) Neutrophils (%) (Auto) 88.4 % (16.0-70.0) 70.4 % (16.0-70.0) Lymphocytes (%) (Auto) 4.3 % (9.0-44.0) Neutrophils # (Auto) 14.0 TH/MM3 (1.8-7.7) Lymphocytes # (Auto) 0.7 TH/MM3 (1.0-4.8) Monocytes # (Auto) 1.1 TH/MM3 (0-0.9) Urine Turbidity CLOUDY (CLEAR) Urine Protein 100 mg/dL (NEG-TRACE) Urine Occult Blood MOD (NEG) Urine Leukocyte Esterase LARGE (NEG) Urine WBC Clumps MANY (NONE) Creatinine 1.31 MG/DL (0.60-1.30) Random Glucose 123 MG/DL (74-106) 112 MG/DL (74-106) Albumin 3.0 GM/DL (3.4-5.0) Calcium Level 8.2 MG/DL (8.5-10.1) 7.6 MG/DL (8.5-10.1) Aspartate Amino Transf (AST/SGOT) 12 U/L (15-37) Anion Gap 4 MEQ/L (5-15) Estimat Glomerular Filtration Rate 56 ML/MIN (>89) 69 ML/MIN (>89) Red Blood Count 4.13 MIL/MM3 (4.50-5.90) Hemoglobin 12.7 GM/DL (13.0-17.0) Hematocrit 37.9 % (39.0-51.0) Monocytes (%) (Auto) 9.9 % (0.0-8.0) Chloride Level 108 MEQ/L (98-107) Imaging Last Impressions Abdomen X-Ray 10/25/17 0600 Signed Impressions: Service Date/Time: Wednesday, October 25, 2017 06:00 - CONCLUSION: 1. Interval removal of the percutaneous nephrostomy tube and placement of a left double pigtail ureteral stent catheter. 2. Multiple small left renal calculi. No definite ureteral calculi. Abilio Parker MD Abdomen/Pelvis CT 10/24/17 0500 Signed Impressions: Service Date/Time: Tuesday, October 24, 2017 05:43 - CONCLUSION: 1. Moderate left hydronephrosis with surrounding inflammatory change. There is dilatation of the left ureter down to the site of a previously noted 12 mm calculus which is now smaller and changed in configuration. This may be status post lithotripsy. 2. 2 nonobstructing left renal calculus. Abilio Parker MD PE at Discharge GENERAL: This is a well-nourished, well-developed patient, in no apparent distress. SKIN: No rashes, ecchymoses or lesions. Cool and dry. HEAD: Atraumatic. Normocephalic. No temporal or scalp tenderness. EYES: Pupils equal round and reactive. Extraocular motions intact. No scleral icterus. No injection or drainage. ENT: Nose without bleeding, purulent drainage or septal hematoma. Throat without erythema, tonsillar hypertrophy or exudate. Uvula midline. Airway patent. NECK: Trachea midline. No JVD or lymphadenopathy. Supple, nontender, no meningeal signs. CARDIOVASCULAR: Regular rate and rhythm without murmurs, gallops, or rubs. RESPIRATORY: Clear to auscultation. Breath sounds equal bilaterally. No wheezes , rales, or rhonchi. GASTROINTESTINAL: Abdomen soft, non-tender, nondistended. No hepato-splenomegaly , or palpable masses. No guarding. MUSCULOSKELETAL: Extremities without clubbing, cyanosis, or edema. No joint tenderness, effusion, or edema noted. NEUROLOGICAL: Awake and alert. Cranial nerves II through XII intact. Motor and sensory grossly within normal limits. Five out of 5 muscle strength in all muscle groups. Normal speech. Pt update on day of discharge The pt was feeling well and wanted to go home. He did report 4/10 pain upon urinating. No other acute complaints. Hospital Course Nephrolithiasis/ left sided hydronephrosis CT can showed: Moderate left hydronephrosis with surrounding inflammatory change ; There is dilatation of the left ureter down to the site of a previously noted 12 mm calculus which is now smaller and changed in configuration; 2 nonobstructing left renal calculus. S/p cystoscopy, left retrograde pyelogram and left ureteral stent placement by urology. He received fluids and pain medications as needed. He will have outpt follow-up with urology for lithotripsy. Complicated UTI Urine culture grew GNR. He was continued on IV Rocephin. He will complete a course of Ceftin. Pt Condition on Discharge: Good Discharge Disposition: Discharge Home Discharge Time: <= 30 minutes Discharge Instructions DIET: Follow Instructions for: As Tolerated, No Restrictions Activities you can perform: Weight Bearing as Rei Follow up Referrals: PCP Follow-up - 1 Week Urology - 1 Week with Roger Ortega MD New Medications: Cefuroxime (Ceftin) 250 Mg Tab 250 MG PO BID for UTI, #10 TAB Oxycodone (Oxycodone) 5 Mg Cap 5 MG PO Q6H PRN for PAIN, #10 CAP 0 Refills Abilio Lau DO Oct 26, 2017 09:37
== END 2017-10-26 12:49 | disposition home or self-care (01) ==
LOC: NEPE 02:48 → NEDA 08:17 → NEPHCDU 09:45
PROVIDERS: ADMIT Hospitalist; ATTEND Hospitalist
DX: N17.9 Acute kidney failure, unspecified (principal); B96.5 Pseudomonas (aeruginosa) (mallei) (pseudomallei) as the cause of diseases classified elsewhere; I12.9 Hypertensive chronic kidney disease with stage 1 through stage 4 chronic kidney disease, or unspecified chronic kidney disease; N18.9 Chronic kidney disease, unspecified; F17.210 Nicotine dependence, cigarettes, uncomplicated; R82.90 Unspecified abnormal findings in urine; Z87.442 Personal history of urinary calculi; Z23 Encounter for immunization
CPT/HCPCS: 00910; 52332; 74000; 74176; 74420; 80048; 80053; 81001; 85025; 87077; 87086; 87186; 90471; 90686; 93005; 96361; 96365; 96366; 96372; 96375; 96376; 99285; C1769; G0378; J0696; J2270; J2405; J3010; J7030; J7120; Q9967; G0008; Q2038

== ENCOUNTER 2017-12-04 06:11 | Observation (INO) | payer MEDICAID ==
[~2017-12-04] VITALS: Ht 190.5 cm; Wt 83.1 kg
[~2017-12-04 06:11] MED LIST changes: -ASPI81TA82 PO; +CLAR10CA3 PO; +CLIN150C14 PO; -EXCETAB; -IBUP800T23 PO; +OMEP20TA93 PO; -PERC5TAB12 PO; -TAB-TAB PO
[2017-12-04] MEDS ORDERED: FUROSEMIDE 40 MG/4 ML VIAL ONE (06:51)
[2017-12-04] MEDS ORDERED: GENTAMICIN SULFATE 80 MG/2 ML VIAL ONE (06:52)
[2017-12-04] MEDS ORDERED: ASPI1TAB57 PO (07:00)
[2017-12-04 07:07] LABS: AUTOMATED NEUTROPHIL # 9.4 TH/MM3 (1.8-7.7); BASOPHIL # 0.2 TH/MM3 (0-0.2); BASOPHIL % 1.2 % (0.0-2.0); EOSINOPHIL # 0.4 TH/MM3 (0-0.4); EOSINOPHIL % 2.9 % (0.0-4.0); HEMATOCRIT 38.7 % (39.0-51.0); HEMOGLOBIN 13.3 GM/DL (13.0-17.0); LYMPH % 14.8 % (9.0-44.0); LYMPHOCYTE # 1.9 TH/MM3 (1.0-4.8); MEAN CELL VOLUME 87.4 FL (80.0-100.0); MEAN CORPUSCULAR HGB CONC 34.3 % (32.0-36.0); MEAN PLATELET VOLUME 7.5 FL (7.0-11.0); MONO % 9.3 % (0.0-8.0); MONOCYTE # 1.2 TH/MM3 (0-0.9); NEUT % 71.8 % (16.0-70.0); PLATELET COUNT 424 TH/MM3 (150-450); RED BLOOD COUNT 4.43 MIL/MM3 (4.50-5.90); RED CELL DISTRIBUTION WIDTH 13.8 % (11.6-17.2); WHITE BLOOD COUNT 13.1 TH/MM3 (4.0-11.0)
[2017-12-04] MEDS ORDERED: POVIDONE IODINE 5% (ANTISEPSIS KIT) 4 APPLICATIONS EACH NARE PRN (07:15)
[2017-12-04] MEDS ORDERED: SODIUM CHLORID 0.9% 500 ML IV PRN (07:15)
[2017-12-04] MEDS ORDERED: CHLORHEXIDINE GLUCONATE 2 % 1 PACK (2 CLOTHS) TOPICAL PRN (07:15)
[2017-12-04] MEDS ORDERED: METOPROLOL TARTRATE 25 MG TAB PO PRN (07:15)
[2017-12-04] MEDS ORDERED: ceFAZolin 1,000 MG/NS 100 ML IV SCH ×2 (07:15)
[2017-12-04] MEDS ORDERED: LACTATED RINGER'S 1000 ML IV PRN (07:15)
[2017-12-04] MEDS ORDERED: SUGAMMADEX SODIUM 200 MG/2 ML VIAL IV PUSH ONE (07:36)
[2017-12-04] MEDS ORDERED: FAMOTIDINE 20 MG/2 ML VIAL ONE (07:37)
--- NOTE | 2017-12-04 09:43 | PD.OP ---
Operative Report Date of Surgery: Dec 04, 2017 Preoperative Diagnosis: (1) Ureteral calculus, left Postoperative Diagnosis: (1) Ureteral calculus, left Procedure: Cystoscopy, endoscopic removal left ureteral stent, left ureteroscopy/renoscopy and left retrograde pyelogram Anesthesia: General Surgeon: Roger Ortega Recreation Worker(s): None Operation and Findings: Indication for procedure: Case of a pleasant 57-year-old gentleman with history recurrent nephrolithiasis who is status post placement of a left ureteral stent for an obstructing 4 mm left proximal to mid ureteral stone on October 24, 2017. Patient presents now for further evaluation and management. Operative procedures in detail: Patient was brought to the operating suite and placed supine on the OR table. He was then placed under general anesthesia. He was then repositioned in the dorsal lithotomy position and prepped and draped in normal sterile fashion. After an appropriate timeout was undertaken, I proceeded with cystoscopic evaluation utilizing the rigid cystoscope with the 20 [place] sheath and 30 lens. The urethra was patent without stricture formation. The prostatic urethra was nonobstructing. Further passive cystoscope within urinary bladder revealed clear reflux from the right ureteral orifice and the distal loop of the left ureteral stent protruding from the left orifice. There were no bladder mucosal lesions, calculi or diverticula formation. I then proceeded to remove the left double-J stent with flexible forceps. The stent was carefully inspected to ascertain that no stent fragments were left behind. I then proceeded with passing a sensor 0.035 wire up the patient's left ureter into the left kidney under fluoroscopy without difficulty. No stones were seen along the course of the ureter or within the left kidney under fluoroscopy. The cystoscope was withdrawn and the wire secured to a sterile drape with hemostat. The self dilating ureteroscope was next utilized and I was easily able to advance the scope all the way up the left ureter into the left kidney. There were no stones seen along the course of the ureter or within the visualized portions of the left kidney. The scope was carefully withdrawn. A 6 [place] Citizen open-ended ureteral catheter was next backloaded through the cystoscope and advanced over the previously placed wire. The open ended catheter was advanced just beyond ureteral orifice and the wire withdrawn. A left retrograde pyelogram study was then performed that demonstrated prompt filling and drainage of the left collecting system. The cystoscope was next withdrawn after the bladder was drained of irrigant fluid. The patient tolerated the procedures without complications and was transferred to the PACU in satisfactory condition. A postop KUB study will be ordered. Roger Ortega MD Dec 04, 2017 09:43
[2017-12-04] MEDS ORDERED: oxyCODONE/ACETAMINOPHEN 5 MG/325 MG TAB PO PRN (09:45)
[2017-12-04] MEDS ORDERED: ONDANSETRON HCL 4 MG/2 ML VIAL IV PUSH PRN (09:45)
[2017-12-04] MEDS ORDERED: PERC5TAB12 PO (09:48)
[2017-12-04] MEDS ORDERED: CEPH-459 PO (09:48)
[2017-12-04] MEDS ORDERED: MIDAZOLAM HCL 2 MG/2 ML VIAL ONE (10:02)
[2017-12-04] MEDS ORDERED: DO NOT ADM ANY ANTICOAGULANT DRUGS PRN (10:15)
--- NOTE | 2017-12-04 10:47 | RADRPT ---
EXAM DATE/TIME: 12/04/2017 10:06 [place] COMPARISON: CT ABDOMEN & PELVIS W/O CONTRAST, October 24, 2017, 5:43. ABDOMEN KUB ONLY, October 25, 2017, 6:00 . INDICATIONS : Evaluate for Calculi. MEDICAL HISTORY : Renal calculi. SURGICAL HISTORY : Nephrectomy, left. ENCOUNTER: Initial ACUITY: 1 day PAIN SCORE: 0/10 LOCATION: Bilateral Abdomen FINDINGS: Faint possible calculi suggested in the mid-upper pole calyceal system of the left kidney and there i s contrast in the left intrarenal collecting system with hydronephrosis and dilated pelvis as well as questionable proximal ureter at the level L 4-5. Small amount of contrast noted in the bladder CONCLUSION: Contrast noted in the left intrarenal collecting system with hydronephrosis and dilated left renal pe lvis as well as possibly proximal left ureter at the level of L4-5. Sonu Mathew MD on December 04, 2017 at 10:40 Board Certified Radiologist. This report was verified electronically.
[2017-12-04] MEDS ORDERED: LIDOCAINE HCL 1% PF 5 ML SYRINGE OTHER ONE (12:00)
[2017-12-04] MEDS ORDERED: DEXAMETHASONE SOD PHOS 4 MG/ML VIAL IV ONE (12:00)
[2017-12-04] MEDS ORDERED: PROPOFOL 200 MG/20 ML AMP IV ONE (12:00)
[2017-12-04] MEDS ORDERED: ROCURONIUM INJ 50 MG/5 ML VIAL IV ONE (12:00)
[2017-12-04] MEDS ORDERED: ePHEDrine/NS 25 MG/5 ML SYRINGE IV ONE (12:00)
[2017-12-04] MEDS ORDERED: PHENYLEPH/NS 1000 MCG/10 ML SYR IV ONE (12:00)
[2017-12-04] MEDS ORDERED: GLYCOPYRROLATE 1 MG/5 ML SYRINGE IV PUSH ONE (12:00)
[2017-12-04] MEDS ORDERED: ONDANSETRON HCL 4 MG/2 ML VIAL IV PUSH ONE (12:00)
[2017-12-04 16:00] VITALS: BP 137/72; PULSE 64; RESP 20; TEMP 97.5; O2SAT 98
[2017-12-04] MEDS: CEPHALEXIN MONOHYDRATE 250 MG CAP PO SCH ×2 (16:01→20:56)
[2017-12-04 21:05] VITALS: BP 108/68; PULSE 84; RESP 18; TEMP 97.8; O2SAT 94
[2017-12-05 00:36] VITALS: BP 114/61; PULSE 73; RESP 18; TEMP 97.6; O2SAT 97
[2017-12-05 05:21] VITALS: BP 120/63; PULSE 69; RESP 18; TEMP 97.7; O2SAT 96
[2017-12-05] MEDS: CEPHALEXIN MONOHYDRATE 250 MG CAP PO SCH (06:09)
[2017-12-05 07:56] VITALS: BP 109/55; PULSE 60; RESP 20; TEMP 97.9; O2SAT 97
== END 2017-12-05 10:01 | disposition home or self-care (01) ==
LOC: HSDC 06:11 → HSDI 09:47 → N05A 14:38
PROVIDERS: ADMIT Urology; ATTEND Urology
DX: N20.1 Calculus of ureter (principal); N13.30 Unspecified hydronephrosis; K21.9 Gastro-esophageal reflux disease without esophagitis; F17.200 Nicotine dependence, unspecified, uncomplicated
CPT/HCPCS: 00910; 52005; 74018; 74420; 85025; C1726; G0378; J0690; J1100; J2250; J2370; J2405; J3010; J7120; J1580; J1940